=== PATIENT | male | born 1950 | race Asian ===

== ENCOUNTER 2016-12-09 10:40 | Emergency (ER) | payer SELFPAY ==
[~2016-12-09] VITALS: Wt 74.6 kg
[~2016-12-09 10:40] MED LIST: DRON2.5C10 PO
[2016-12-10] MEDS ORDERED: TAMS-14 PO (10:25)
[2016-12-10] MEDS ORDERED: GLYC1SUP92 PR (10:25)
[2016-12-10] MEDS ORDERED: POLY17PO6 PO (10:25)
== END 2016-12-09 11:47 | disposition left against medical advice (07) ==
LOC: FTE 10:40
DX: Z53.21 Procedure and treatment not carried out due to patient leaving prior to being seen by health care provider (principal)

== ENCOUNTER 2016-12-10 08:46 | Emergency (ER) | payer MEDICARE ==
[~2016-12-10] VITALS: Ht 167.6 cm; Wt 77.4 kg
[2016-12-10 08:49] VITALS: Ht 167.6 cm; Wt 77.4 kg
[2016-12-10 10:10] LABS: URINE BLOOD (Dip) POC Trace-intact (NEGATIVE)
[2016-12-10] MEDS ORDERED: TAMS-14 PO (10:25)
[2016-12-10] MEDS ORDERED: POLY17PO6 PO (10:25)
[2016-12-10] MEDS ORDERED: GLYC1SUP92 PR (10:25)
--- NOTE | 2016-12-10 12:12 | ERD ---
DATE OF SERVICE: 12/10/2016 HISTORY OF PRESENT ILLNESS: The patient is a 66-year-old male coming in complaining of urinary rete ntion. The patient states that he dribbles frequently. He feels he needs to urinate, but he is marcia ble to completely void. He denies any back pain. He is able to control bowel movements. Has no nu mbness or tingling down his legs, and denies fever. He says it has been going on for a while. He h as seen his primary doctor, but wanted to be reevaluated. He denies any perineal pain, no abdominal pain, no vomiting and no blood in his urine. He states that he denies dysuria. He also has depres kory, but denies any suicidal or homicidal ideation. Denies any other medical problems. ALLERGIES TO MEDICATIONS: DENIES. PAST SURGICAL HISTORY: Denies. HOSPITALIZATIONS: Denies. REVIEW OF SYSTEMS: A 12-point review of systems was done. Refer to HPI for positives, all other sy stems negative. PHYSICAL EXAMINATION: VITAL SIGNS: Temperature is 98.5, pulse 95, blood pressure is 133/89, respiratory rate 16, O2 satur ation 99% on room air. Pain intensity is 0/10. GENERAL: The patient is well-appearing, well-nourished, no acute distress. HEENT: Atraumatic. Conjunctivae are pink. Pupils equal, round, and reactive to light. There is no s cleral icterus. Tympanic membranes clear bilaterally. Oropharynx clear. No nystagmus or photophobia . CHEST: Clear to auscultation bilaterally. There are no rales, wheezes or rhonchi. HEART: Regular rate and rhythm. No murmurs, clicks, rubs or gallops. No S3 or S4. ABDOMEN: Soft, nontender and nondistended. Good bowel sounds. No rebound or guarding. No gross issac tonitis. No gross organomegaly or masses. No Waggoner sign or McBurney point tenderness. NEURO: Alert and oriented. Cranial nerves 2-12 intact. Motor strength in all 4 extremities with 5/5 strength. Sensation grossly intact. Normal speech and gait. Babinski negative. DTR 2+ throughout. SKIN: There is no apparent rash or petechia. The skin is warm and dry. GENITOURINARY: There is no erythema or swelling noted to the testicles. There is no tenderness to palpation over the perineum. No abnormal findings noted to the penis. EMERGENCY ROOM COURSE: The patient had a urine dip checked in the ER. The patient's urine showed n egative leukocytes, negative nitrites, trace blood, negative ketones, negative glucose, negative pro tein. The patient's urine was sent for culture. DIAGNOSES: 1. Benign prostatic hypertrophy. 2. Constipation. MEDICAL DECISION MAKING: The patient states he has constipation at home. I have low suspicion for bowel obstruction as his last BM was earlier today. I have low suspicion for urinary tract infectio n, nephrolithiasis or septic stone as the patient's urine is within normal limits and patient does n ot have signs of infection noted on the urine. I have low suspicion for prostatitis. The patient's vital signs are stable and there is no erythema or tenderness to palpation over the perineum. The patient likely is experiencing BPH; however, I have low suspicion for a complete occlusion at this t tere as patient is able to give urine in the ER. I have low suspicion for cauda equina as patient is able to control his bowel movements and does not have any numbness or tingling extending down his l egs. DISCHARGE: The patient is discharged stable. The patient is given prescription for Flomax, a nd MiraLax and told to follow up with primary care within 1 to 2 days for reevaluation. The patient was told if symptoms progress or worsen, to return to the ER. All other questions answered at time of discharge. Discharge summary given at the time of departure. The patient understood and compli ed with plan. Dictated By: CHIRAG PUTNAM for DAVID OSMAN/NTS Conf#: [id number] DID#: [id number]
== END 2016-12-10 10:35 | disposition home or self-care (01) ==
LOC: FTE 08:46
DX: N40.0 Benign prostatic hyperplasia without lower urinary tract symptoms (principal); K59.00 Constipation, unspecified
CPT/HCPCS: 81003; 87086; 99283

== ENCOUNTER 2017-05-25 21:04 | Inpatient (IN) | payer MEDICARE, OTHER ==
[~2017-05-25] VITALS: Ht 177.8 cm; Wt 63.8 kg
[~2017-05-25 21:04] MED LIST changes: +GLYC1SUP92 PR; +POLY17PO6 PO; +TAMS-14 PO
[2017-05-25] MEDS ORDERED: SOD CHLORIDE 0.9% 500 ML IV ONE (22:00)
[2017-05-25] MEDS ORDERED: TAMS0.4C2 PO (22:02)
[2017-05-25] MEDS ORDERED: RIS1 PO (22:03)
[2017-05-25] MEDS ORDERED: POTA10TA97 PO (22:04)
[2017-05-25] MEDS ORDERED: OLAN10TA7 PO (22:05)
[2017-05-25] MEDS ORDERED: MULTI PO (22:05)
[2017-05-25] MEDS ORDERED: VENL150C PO (22:06)
[2017-05-25] MEDS ORDERED: DOCU-144 PO (22:07)
[2017-05-25] MEDS ORDERED: CLON-429 PO (22:07)
[2017-05-25] MEDS ORDERED: FENO54TA7 PO (22:09)
[2017-05-25] MEDS ORDERED: HYD25 PO (22:09)
[2017-05-25] MEDS ORDERED: MIRT30TA5 PO (22:10)
[2017-05-25 22:22] LABS: ABNORMAL IP MESSAGE 1; BASOPHILS % 0.2 % (0.0-2.0); HEMATOCRIT 48.4 % (42.0-52.0); HEMOGLOBIN 15.9 g/dl (14.0-18.0); LYMPHOCYTES # 2.2 10^3/ul (0.8-2.9); LYMPHOCYTES % 20.9 % (15.0-51.0); MEAN CORPUSCULAR HEMOGLOBIN 30.7 pg (29.0-33.0); MEAN CORPUSCULAR HGB CONC 32.9 g/dl (32.0-37.0); MEAN CORPUSCULAR VOLUME 93.4 fl (82.0-101.0); MEAN PLATELET VOLUME 10.6 fl (7.4-10.4); MONOCYTE # 1.6 10^3/ul (0.3-0.9); NEUTROPHILS % 63.6 % (39.0-77.0); PLATELET COUNT 214 10^3/UL (140-415); POSITIVE DIFF @See below; RED BLOOD COUNT 5.18 10^6/ul (4.70-6.10); RED CELL DISTRIBUTION WIDTH 13.9 % (11.5-14.5); WHITE BLOOD COUNT 10.5 10^3/ul (4.8-10.8)
--- NOTE | 2017-05-25 22:23 | RADRPT ---
PROCEDURE: CT Brain without contrast. CLINICAL INDICATION: Weakness TECHNIQUE: A CT of the brain was performed on a multidetector CT scanner utilizing axial sections from the skull base through the vertex without contrast. Images were reviewed on a high-resolution [employer] workstation. Exam CTDI = 43.48 mGy and the DLP = 720.23 mGy-cm. One or more of the following dose reduction techniques were used: Automated exposure control Adjustment of the mA and/or kV according to patient size. Use of iterative reconstruction technique. COMPARISON: None available FINDINGS: There is no evidence of intracranial hemorrhage, mass effect or midline shift. There is mild general ized volume loss. No abnormal intra-axial or extra-axial fluid collections are seen. Scattered hypoa ttenuation in the periventricular and deep white matter in keeping with minimal microvascular ischem ic changes. The density of the brain is normal and the de jesus/white matter differentiation is well pre served. The osseous structures are unremarkable. Paranasal sinuses are clear. Vascular calcificati ons are identified. IMPRESSION: 1. No intracranial hemorrhage, mass effect or midline shift. 2. Mild chronic microvascular ischemic changes. 3. Mild intracranial atherosclerosis. RPTAT: HHO .Alexander Noonan MD, MD Date Time Electronically viewed and signed by .Alexander Noonan MD, on 05/25/2017 22:23 .O/
[2017-05-25 22:34] LABS: INR 1.13; PARTIAL THROMBOPLASTIN TIME 23.1 Sec (25.0-35.0); PROTIME 14.5 Sec (12.2-14.2); PT RATIO 1.1
[2017-05-25 22:48] LABS: ALBUMIN 4.7 g/dl (3.3-4.9); ALBUMIN/GLOBULIN RATIO 1.2; BILIRUBIN,INDIRECT 1.5 mg/dl (0-1.1); BILIRUBIN,TOTAL 1.5 mg/dl (0.2-1.3); CALCIUM 9.6 mg/dl (8.4-10.2); CREATININE 1.22 mg/dl (0.61-1.24); POTASSIUM 3.5 mmol/L (3.5-5.1); TOTAL PROTEIN 8.6 g/dl (6.1-8.1)
--- NOTE | 2017-05-25 22:51 | RADRPT ---
PROCEDURE: CHEST - 1 VIEW CLINICAL INDICATION: 67-year-old male with shortness of breath and possible sepsis. TECHNIQUE: A single frontal AP upright portable view of the chest was performed. The images were reviewed on a PACS workstation. COMPARISON: None. FINDINGS: The cardiomediastinal silhouette within normal limits. There is a shallow inspiration. There is mi nimal bibasilar subsegmental atelectasis. There is no evidence for an infiltrate. There is no evid ence for congestive heart failure. There is no evidence for pneumothorax. The osseous structures are intact. IMPRESSION: Shallow inspiration with minimal bibasilar subsegmental atelectasis. .Rashard Rosas MD, Date Time Electronically viewed and signed by .Rashard Rosas MD, MD on 05/25/2017 22:51 .Addi/
[2017-05-25 22:59] LABS: TROPONIN-I 0.036 ng/ml (0.00-0.12)
[2017-05-25 23:03] LABS: ADD UMIC YES; UR ASCORBIC ACID 20 mg/dL (NEGATIVE); UR BILIRUBIN (Dip) NEGATIVE (NEGATIVE); UR BLOOD (Dip) NEGATIVE (NEGATIVE); UR CLARITY SLIGHTLY CLOUDY (CLEAR); UR COLOR AMBER (YELLOW); UR GLUCOSE (Dip) NEGATIVE (NEGATIVE); UR KETONES (Dip) TRACE mg/dL (NEGATIVE); UR LEUKOCYTE ESTERASE (Dip) NEGATIVE Leu/ul (NEGATIVE); UR MUCUS FEW /HPF (NONE SEEN); UR NITRITE (Dip) NEGATIVE (NEGATIVE); UR RBC 1 /HPF (0-5); UR TOTAL PROTEIN (Dip) 2+ mg/dl (NEGATIVE); UR UROBILINOGEN (Dip) 1+ mg/dL (NEGATIVE)
[2017-05-26] VITALS (11 sets, daily range): BP systolic 96–114; BP diastolic 64–79; PULSE 71–87; RESP 15–19; Ht 177.8 cm; Wt 63.8 kg
--- NOTE | 2017-05-26 01:45 | ERA ---
ER Documentation Chief Complaint Date/Time DATE: 05/26/17 TIME: 01:44 Chief Complaint weakness x 1 day HPI 67-year-old male sent from alf facility for weakness 1 day. Weakness is generalized. Patient himself cannot relate any history. History of pre-EMS [employer] prison transfer she ROS All systems reviewed and are negative except as per history of present illness. Medications Home Meds Reported Medications Mirtazapine* (Mirtazapine*) 30 Mg Tablet, 60 MG PO HS, TAB 05/25/17 Hydrochlorothiazide* (Hydrochlorothiazide*) 25 Mg Tab, 25 MG PO QAM, #30 TAB 05/25/17 Fenofibrate, Micronized (Fenofibrate) 54 Mg Tablet, 54 MG PO QAM, TAB 05/25/17 Docusate Sodium* (Colace*) 100 Mg Capsule, 100 MG PO QAM, #30 CAP 05/25/17 Clonazepam* (Klonopin*) 0.5 Mg Tab, 0.5 MG PO Q5PM Y for ANXIETY, TAB 05/25/17 Venlafaxine Hcl* (Effexor XR*) 150 Mg Cap.sr.24h, 150 MG PO QAM, CAP 05/25/17 Multivitamins* (Theragran*) 1 Tab Tab, 1 TAB PO DAILY, TAB 05/25/17 Olanzapine* (Zyprexa*) 10 Mg Tablet, 10 MG PO DAILY, #30 TAB 05/25/17 Potassium Chloride (Klor-Con) 10 Meq Tablet.sa, 10 MEQ PO DAILY, TAB.SA 05/25/17 Risperidone* (Risperdal*) 1 Mg Tablet, 1 MG PO QHS, TAB 05/25/17 Tamsulosin Hcl* (Tamsulosin Hcl*) 0.4 Mg Cap.er.24h, 0.4 MG PO DAILY, CAP 05/25/17 Discontinued Scripts Tamsulosin Hcl* (Flomax*) 0.4 Mg Cap.er.24h, 0.4 MG PO BID, #30 CAP Prov:SEAN CELESTE PA-C 12/10/16 Glycerin* (Glycerin (Adult)*) 1 Each Supp.rect, 1 EACH [place] DAILY Y for CONSTIPATION, #30 SUPP.RECT Prov:SEAN CELESTE PA-C 12/10/16 Polyethylene Glycol* (Miralax*) 17 Gm Powd.pack, 17 GM PO DAILY, #7 Prov:SEAN CELESTE PA-C 12/10/16 Dronabinol* (Marinol*) 2.5 Mg Capsule, 2.5 MG PO TID, #30 CAP Prov:DARÍO IGNACIO DO 08/02/16 Allergies Allergies: Coded Allergies: No Known Allergy (Unverified , 05/25/17) PMhx/Soc History of Surgery: No Anesthesia Reaction: No Hx Neurological Disorder: No Hx Respiratory Disorders: No Hx Cardiac Disorders: No Hx Psychiatric Problems: Yes (Depression.) Hx Miscellaneous Medical Probl: No Hx Alcohol Use: No Hx Substance Use: No Hx Tobacco Use: No Smoking Status: Never smoker Physical Exam Vitals Vital Signs Date Time Temp Pulse Resp B/P Pulse Ox O2 Delivery O2 Flow Rate FiO2 05/26/17 00:37 70 20 109/75 96 Nasal Cannula 2.0 05/25/17 22:04 Nasal Cannula 2 05/25/17 21:17 100.0 90 20 110/81 93 Physical Exam Const: [] Head: Atraumatic Eyes: Normal Conjunctiva ENT: Normal External Ears, Nose and Mouth. Neck: Full range of motion..~ No meningismus. Resp: Clear to auscultation bilaterally Cardio: Regular rate and rhythm, no murmurs Abd: Soft, non tender, non distended. Normal bowel sounds Skin: No petechiae or rashes Back: No midline or flank tenderness Ext: No cyanosis, or edema Neur: Awake and alert Psych: Normal Mood and Affect Result Diagram: 05/25/17215805/25/172158 Results 24 hrs Laboratory Tests Test 05/25/17 21:59 05/25/17 22:24 White Blood Count 10.510^3/ul Red Blood Count 5.1810^6/ul Hemoglobin 15.9g/dl Hematocrit 48.4% Mean Corpuscular Volume 93.4fl Mean Corpuscular Hemoglobin 30.7pg Mean Corpuscular Hemoglobin Concent 32.9g/dl Red Cell Distribution Width 13.9% Platelet Count 94178^3/UL Mean Platelet Volume 10.6fl Neutrophils % 63.6% Lymphocytes % 20.9% Monocytes % 15.0% Eosinophils % 0.0% Basophils % 0.2% Nucleated Red Blood Cells % 0.0/100WBC Neutrophils # (Manual) 6.710^3/ul Lymphocytes # 2.210^3/ul Monocytes # 1.610^3/ul Eosinophils # 0.010^3/ul Basophils # 0.010^3/ul Nucleated Red Blood Cells # 0.010^3/ul Prothrombin Time 14.5Sec Prothrombin Time Ratio 1.1 INR International Normalized Ratio 1.13 Activated Partial Thromboplast Time 23.1Sec Sodium Level 157mmol/L Potassium Level 3.5mmol/L Chloride Level 107mmol/L Carbon Dioxide Level 29mmol/L Anion Gap 25 Blood Urea Nitrogen 39mg/dl Creatinine 1.22mg/dl Glucose Level 116mg/dl Lactic Acid Level 1.8mmol/L Calcium Level 9.6mg/dl Total Bilirubin 1.5mg/dl Direct Bilirubin 0.00mg/dl Indirect Bilirubin 1.5mg/dl Aspartate Amino Transf (AST/SGOT) 58IU/L Alanine Aminotransferase (ALT/SGPT) 35IU/L Alkaline Phosphatase 51IU/L Troponin I 0.036ng/ml Total Protein 8.6g/dl Albumin 4.7g/dl Globulin 3.90g/dl Albumin/Globulin Ratio 1.20 Urine Color CASIE Urine Clarity SLIGHTLY CLOUDY Urine pH 5.0 Urine Specific [place] 1.030 Urine Ketones TRACEmg/dL Urine Nitrite NEGATIVEmg/dL Urine Bilirubin NEGATIVEmg/dL Urine Urobilinogen 1+mg/dL Urine Leukocyte Esterase NEGATIVELeu/ul Urine Microscopic RBC 1/HPF Urine Microscopic WBC 0/HPF Urine Mucus FEW/HPF Urine Hemoglobin NEGATIVEmg/dL Urine Glucose NEGATIVEmg/dL Urine Total Protein 2+mg/dl Current Medications Medications (Trade) Dose Ordered Sig/Jazmyn Route PRN Reason Start Time Stop Time Status Last Admin Dose Admin Sodium Chloride (NS) 500 ml @ 500 mls/hr Q1H ONCE IV 05/25/17 22:00 05/25/17 22:59 DC 05/25/17 22:17 Procedures/MDM EKG: Rate/Rhythm: Normal Sinus Rhythm QRS, ST, T-waves: No changes consistent w/ acute ischemia Impression: No evidence of ischemia or arrhythmia Chest X-ray 1V Interpreted by me: Soft Tissue: No acute abnormalities Bones: No acute abnormalities Mediastinum/Cardiac Silhouette/Lungs: No acute abnormalities Medical decision-makin 7-year-old male generalized weakness. Patient will be made for further evaluation and management. Laboratory data does show evidence of electrolyte imbalance along with mild dehydration. This could be the cause, however further investigation will be necessary at this point. Hospitalist notified. Departure Diagnosis: Primary Impression: Acute weakness Additional Impression: Acute hypernatremia Condition: Serious MIMI FLORES May 26, 2017 01:45
[2017-05-26] MEDS ORDERED: ONDANSETRON 4 MG INJ IV PRN ×2 (04:30)
[2017-05-26] MEDS ORDERED: clonAZEPAM 0.5 MG TAB PO PRN (04:30)
[2017-05-26] MEDS ORDERED: morphine 2 MG INJ IV PRN ×2 (04:30)
[2017-05-26] MEDS: DEXTROSE 5% 1,000 ML IV SCH ×2 (05:03→16:13)
--- NOTE | 2017-05-26 05:09 | HP ---
Date/Time of Note Date/Time of Note DATE: 05/26/17 TIME: 04:57 Assessment/Plan VTE Prophylaxis VTE Prophylaxis Intervention: heparin Lines/Catheters IV [facility] Saline Lock Urinary Cath still in place: Yes Reason Cath still needed: terminal illness/intractable pain Assessment/Plan Assessment/Plan 1. Generalized weakness -Likely secondary to poor p.o. intake and depression -Head CT was negative for acute findings, vitals were stable and lab shows a sodium of 157. -We will correct hypernatremia. Will place a dietary consult. He will have physical therapy evaluation. -Additional workup including additional imaging as needed -He will be placed on aspirin and statin 2. Depression -Per ER nursing report, patient reported feeling depressed, lost his due to cancer 3 months ago and has lost his job as well -We will continue his home psychiatric medications. Telemetry psych evaluation in the morning 3. Hypernatremia -This is likely secondary to dehydration as also indicated by elevated BUN -Will be placed on D5W -Check a.m. labs HPI/ROS Admit Date/Time Admit Date/Time May 26, 2017 at 00:45 Hx of Present Illness This is a 67-year-old male with history of depression, likely psychiatric disorder and BPH who was sent from a facility for generalized weakness, unable to talk and decreased appetite. When he presented to the ER, vitals were stable. Labs show sodium 157, BUN 39 and AST 58 otherwise CBC and CMP were within normal limits. Head CT shows mild chronic micro-angiopathic ischemic changes otherwise no acute findings. Chest x -ray shows minimal subsegmental atelectasis. Currently patient is not willing to answer questions, but per nursing he was noted to be talking to himself. According to ER nursing reports, patient complained of feeling depressed after his 3 months ago due to cancer, and that he has lost his job. Reportedly he was alert and oriented 4 in the ER. . PMH/Family/Social Past Medical History Medical History: other (Depression, BPH) Social History Alcohol Use: other (Unknown) Smoking Status: Unknown if ever smoked Drug Use: other Exam/Review of Systems Vital Signs Vitals Vital Signs Date Time Temp Pulse Resp B/P Pulse Ox O2 Delivery O2 Flow Rate FiO2 05/26/17 03:59 98.4 66 19 102/69 94 05/26/17 01:47 Room Air 05/26/17 00:37 2.0 Exam Constitutional: other (No acute distress) Head: atraumatic, normocephalic Eyes: EOMI, PERRL Respiratory: clear to auscultation, normal air movement Cardiovascular: nl pulses, regular rate and rhythm Gastrointestinal: non-tender, soft Neurological: other (Generalized weakness and both bilateral upper and lower extremities) Labs Result Diagram: 05/25/17215805/25/172158 Medications Medications Current Medications Aspirin (Halfprin) 81 mg DAILY PO ; Start 05/26/17 at 09:00 Ondansetron HCl (Zofran Inj) 4 mg Q6H PRN IV NAUSEA AND/OR VOMITING; Start at 04:30 Morphine Sulfate (morphine) 2 mg Q4H PRN IV pain; Start 05/26/17 at 04:30 Heparin Sodium (Porcine) (Heparin (5000 Units/0.5 ml)) 5,000 unit BID SC ; Start 05/26/17 at 09:00 Clonazepam (Klonopin) 0.5 mg DAILY PRN PO ANXIETY; Start 05/26/17 at 04:30; Status UNV Mirtazapine (Remeron) 60 mg HS PO ; Start 05/26/17 at 21:00; Status UNV Multivitamins Therapeutic (Theragran) 1 tab DAILY PO ; Start 05/26/17 at 09:00; Status UNV Olanzapine (Zyprexa) 10 mg DAILY PO ; Start 05/26/17 at 09:00; Status UNV Risperidone (Risperdal) 1 mg QHS PO ; Start 05/26/17 at 21:00; Status UNV Tamsulosin HCl (Flomax) 0.4 mg DAILY PO ; Start 05/26/17 at 09:00 Venlafaxine HCl (Effexor Xr) 150 mg QAM PO ; Start 05/26/17 at 09:00 Miscellaneous Information 54 mg 54 mg QAM PO ; Start 05/26/17 at 09:00; Status UNV Dextrose (D5W) 1,000 ml @ 100 mls/hr Q10H IV ; Start 05/26/17 at 04:30; Status UNV MIMI BERNABE MD May 26, 2017 05:07
[2017-05-26 07:59] LABS: BASOPHILS % 0.3 % (0.0-2.0); EOSINOPHILS % 0.2 % (0.0-7.0); HEMATOCRIT 46.5 % (42.0-52.0); HEMOGLOBIN 15.3 g/dl (14.0-18.0); LYMPHOCYTES # 2.4 10^3/ul (0.8-2.9); LYMPHOCYTES % 20.2 % (15.0-51.0); MEAN CORPUSCULAR HEMOGLOBIN 31.1 pg (29.0-33.0); MEAN CORPUSCULAR HGB CONC 32.9 g/dl (32.0-37.0); MEAN CORPUSCULAR VOLUME 94.5 fl (82.0-101.0); MEAN PLATELET VOLUME 10.2 fl (7.4-10.4); MONOCYTE # 1.1 10^3/ul (0.3-0.9); MONOCYTES % 9.4 % (0.0-11.0); NEUTROPHILS % 69.6 % (39.0-77.0); PLATELET COUNT 227 10^3/UL (140-415); RED BLOOD COUNT 4.92 10^6/ul (4.70-6.10); WHITE BLOOD COUNT 11.6 10^3/ul (4.8-10.8)
[2017-05-26] MEDS ORDERED: HEPARIN 5,000 UNIT/0.5 ML VIAL SC SCH (09:00)
[2017-05-26 09:04] LABS: ALBUMIN 4.3 g/dl (3.3-4.9); ALBUMIN/GLOBULIN RATIO 1.19; BILIRUBIN,INDIRECT 1.5 mg/dl (0-1.1); BILIRUBIN,TOTAL 1.5 mg/dl (0.2-1.3); CALCIUM 9.2 mg/dl (8.4-10.2); CHOL/HDL RATIO 5.3 RATIO; CREATININE 0.92 mg/dl (0.61-1.24); POTASSIUM 3.1 mmol/L (3.5-5.1); TOTAL PROTEIN 7.9 g/dl (6.1-8.1)
[2017-05-26] MEDS: MULTIVITAMINS THERAPEUTIC TAB PO SCH (09:06)
[2017-05-26] MEDS: TAMSULOSIN (SR) 0.4 MG CAP PO SCH (09:06)
[2017-05-26] MEDS: VENLAFAXINE (XR) 75 MG CAP PO SCH (09:06)
[2017-05-26] MEDS: OLANZAPINE 5 MG TAB PO SCH (09:06)
[2017-05-26] MEDS: ASPIRIN (EC) 81 MG TAB PO SCH (09:06)
[2017-05-26] MEDS: FENOFIBRATE 48 MG TAB PO SCH (09:07)
[2017-05-26] MEDS: HEPARIN 5,000 UNIT/0.5 ML VIAL SC SCH ×2 (09:10→20:51)
--- NOTE | 2017-05-26 10:15 | QN ---
Documentation Comment Examined patient at bedside. Vun-Shvqija-bpespcmu, [place] male who seems comfortable. Awake, oriented 4. Follows commands. Denies any suicidal or hallucination or thoughts. Tolerating diet, however appetite is poor. We will have social media project manager evaluate the patient and will consult telemetry psych if indicated. Patient also with elevated liver function tests. We will proceed with the right upper quadrant ultrasound. We will also order dietitian evaluation. Will replace potassium. Repeat sodium is improved mildly. We will continue D5 water. Case discussed with GAVIN Ridley NP May 26, 2017 10:15
[2017-05-26] MEDS ORDERED: POTASSIUM CHLORIDE (SR) 20 MEQ TAB PO STA (10:20)
--- NOTE | 2017-05-26 16:52 | RADRPT ---
PROCEDURE: US Abdomen Complete. CLINICAL INDICATION: elevated LFT,RN EXT [id number], SEE NOTES TECHNIQUE: Multiple real-time images were acquired of the patient's abdomen and retroperitoneum ut ilizing a high resolution transducer. COMPARISON: None FINDINGS: The liver measures 12.5 cm and demonstrates mildly increased echogenicity with geographic areas of h ypoechogenicity. There is no intrahepatic biliary ductal dilatation. The extrahepatic common bile du ct measures 2 mm. The main portal vein is patent with proper directional flow. The gallbladder is absent. The pancreas is not visualized. The spleen measures 9.5 cm. The right kidney measures 11.1 cm. The left kidney measures 9.9 cm. There are no renal calculi or hy dronephrosis bilaterally. There are multiple simple right renal cysts measuring up to 4.7 cm. There is a 2.9 cm partially exophytic solid - appearing lesion projecting off the mid to lower pole of the right kidney. Foci of vascular flow noted within it. The visualized abdominal aorta and IVC are grossly unremarkable. IMPRESSION: Mild fatty infiltration of the liver with areas of likely focal fatty sparing. Status post cholecystectomy. Normal CBD. 2.9 cm solid lesion in the mid to lower pole of the right kidney with vascular flow. Malignancy can not be excluded. An MRI of the abdomen with attention to the kidneys without and with intravenous c ontrast is recommended for further evaluation. RPTAT: EE Physician Vinay Date Time Electronically viewed and signed by Physician Vinay on 05/26/2017 16:52 /
[2017-05-26] MEDS: RISPERIDONE 1 MG TAB PO SCH (20:44)
[2017-05-26] MEDS: MIRTAZAPINE 15 MG TAB PO SCH (20:44)
[2017-05-27] VITALS (10 sets, daily range): BP systolic 94–100; BP diastolic 51–65; PULSE 68–94; RESP 18–20
[2017-05-27] MEDS: DEXTROSE 5% 1,000 ML IV SCH ×2 (02:12→10:30)
[2017-05-27 07:44] LABS: BASOPHILS % 0.4 % (0.0-2.0); EOSINOPHILS # 0.2 10^3/ul (0.0-0.5); EOSINOPHILS % 2.2 % (0.0-7.0); HEMATOCRIT 41.6 % (42.0-52.0); HEMOGLOBIN 13.9 g/dl (14.0-18.0); LYMPHOCYTES # 2.6 10^3/ul (0.8-2.9); LYMPHOCYTES % 31.3 % (15.0-51.0); MEAN CORPUSCULAR HEMOGLOBIN 31.7 pg (29.0-33.0); MEAN CORPUSCULAR HGB CONC 33.4 g/dl (32.0-37.0); MEAN CORPUSCULAR VOLUME 94.8 fl (82.0-101.0); MEAN PLATELET VOLUME 10.4 fl (7.4-10.4); MONOCYTE # 0.6 10^3/ul (0.3-0.9); MONOCYTES % 7.8 % (0.0-11.0); NEUTROPHILS % 58.1 % (39.0-77.0); PLATELET COUNT 191 10^3/UL (140-415); RED BLOOD COUNT 4.39 10^6/ul (4.70-6.10); RED CELL DISTRIBUTION WIDTH 13.2 % (11.5-14.5); WHITE BLOOD COUNT 8.2 10^3/ul (4.8-10.8)
[2017-05-27 08:16] LABS: ALBUMIN 3.5 g/dl (3.3-4.9); ALBUMIN/GLOBULIN RATIO 1.29; BILIRUBIN,INDIRECT 0.8 mg/dl (0-1.1); BILIRUBIN,TOTAL 0.8 mg/dl (0.2-1.3); CALCIUM 8.6 mg/dl (8.4-10.2); CREATININE 0.78 mg/dl (0.61-1.24); POTASSIUM 3.4 mmol/L (3.5-5.1); TOTAL PROTEIN 6.2 g/dl (6.1-8.1)
[2017-05-27 08:36] LABS: THYROID STIMULATING HORMONE 4.08 MIU/L (0.465-4.680)
[2017-05-27] MEDS: MULTIVITAMINS THERAPEUTIC TAB PO SCH (08:56)
[2017-05-27] MEDS: ASPIRIN (EC) 81 MG TAB PO SCH (08:56)
[2017-05-27] MEDS: FENOFIBRATE 48 MG TAB PO SCH (08:56)
[2017-05-27] MEDS: OLANZAPINE 5 MG TAB PO SCH (08:56)
[2017-05-27] MEDS: VENLAFAXINE (XR) 75 MG CAP PO SCH (08:56)
[2017-05-27] MEDS: TAMSULOSIN (SR) 0.4 MG CAP PO SCH (08:56)
[2017-05-27] MEDS: HEPARIN 5,000 UNIT/0.5 ML VIAL SC SCH ×2 (09:03→21:09)
[2017-05-27] MEDS ORDERED: POTASSIUM CHLORIDE (SR) 20 MEQ TAB PO STA (11:36)
--- NOTE | 2017-05-27 11:42 | PN ---
Date/Time of Note Date/Time of Note DATE: 05/27/17 TIME: 11:35 Assessment/Plan VTE Prophylaxis VTE Prophylaxis Intervention: ambulation, SCD's Lines/Catheters IV Catheter Type (from Nrs): Saline Lock Urinary Cath still in place: Yes Reason Cath still needed: other (indicate) Assessment/Plan Chief Complaint/Hosp Course 1. Dehydration. Resolving. -Encouraged oral intake and continue IV fluid hydration. 2. Hyponatremia secondary to dehydration with a resolving -Change IV fluids to D5 1/2 ns. 3. Depression. Stable. survey worker evaluation appreciated. Continue current psych medication and recommended outpatient psych follow-up. 4. Hypokalemia. Stable -Replete and monitor. 5. 2.9 cm solid lesion in the mid to lower pole of the right kidney with vascular flow. -Obtain renal protocol MRI with and without contrast for further investigation. 6. Mild fatty liver. LFTs stable. Plan: Continue current medical management. DC [place], Encourage diet and AMBULATION. Follow-up with MRI findings and he stable, discharge planning back to [facility] and care. Case discussed with Dr. Rosenthal. Problems: Subjective 24 Hr Interval Summary Free Text/Dictation Patient is more awake and verbally responsive today. He refused chest pain, difficulty breathing, abdominal pain, nausea, vomiting or other discomfort. Has been eating. Exam/Review of Systems Vital Signs Vitals Vital Signs Date Time Temp Pulse Resp B/P Pulse Ox O2 Delivery O2 Flow Rate FiO2 05/27/17 08:13 74 05/27/17 07:48 97.8 20 98/61 100 05/26/17 01:47 Room Air 05/26/17 00:37 2.0 Intake and Output 05/26/17 05/26/17 05/27/17 15:00 23:00 07:00 Intake Total 480 ml 920 ml Output Total 600 ml 300 ml Balance -120 ml 620 ml Exam General: Well developed,adequately built Thai male, not in any acute distress . HEENT: Normocephalic, Atraumatic, No laceration or hematoma; Eyes: PEERL, Conjunctiva clear, Anicteric sclera Neck: Supple without any lymphadenopathy, nontender, no JVD, no carotid bruits, trachea midline, no thyromegaly Cardiac: S1, S2 auscultated, regular rhythm and rate, no mumurs or gallop Pulmonary: Normal respiratory effort. Chest clear to auscultation bilaterally, no adventitious breath sounds GI: Abdomen normal to inspection. Soft, non tender, non- distended, no masses, no rebound tenderness or guarding. Bowel sounds active on all four quadrants Genitourinary: Deferred Extremities: No cyanosis, clubbing, or edema. Pulses [2+] bilaterally. Full ROM on all four extremities. No focal weakness appreciated. Neurologic: Alert to person, place, time, and situation. Affect slightly depressed, intact sensation. Skin: Clean,dry, and intact. No ecchymosis, no rashes, or lesions; no Psych: Slightly depressed affect. No Suicidal or hallucination or thoughts. Results Result Diagram: 05/27/17 0635 05/27/17 0635 Results 24 hrs Laboratory Tests Test 05/27/17 06:35 White Blood Count 8.2 # Red Blood Count 4.39 L Hemoglobin 13.9 L Hematocrit 41.6 L Mean Corpuscular Volume 94.8 Mean Corpuscular Hemoglobin 31.7 Mean Corpuscular Hemoglobin Concent 33.4 Red Cell Distribution Width 13.2 Platelet Count 191 Mean Platelet Volume 10.4 Neutrophils % 58.1 Lymphocytes % 31.3 Monocytes % 7.8 Eosinophils % 2.2 Basophils % 0.4 Nucleated Red Blood Cells % 0.0 Neutrophils # (Manual) 4.8 Lymphocytes # 2.6 Monocytes # 0.6 Eosinophils # 0.2 Basophils # 0.0 Nucleated Red Blood Cells # 0.0 Sodium Level 146 H Potassium Level 3.4 L Chloride Level 100 Carbon Dioxide Level 32 H Anion Gap 17 H Blood Urea Nitrogen 25 #H Creatinine 0.78 Glucose Level 104 Calcium Level 8.6 Magnesium Level 2.3 Total Bilirubin 0.8 Direct Bilirubin 0.00 Indirect Bilirubin 0.8 Aspartate Amino Transf (AST/SGOT) 48 H Alanine Aminotransferase (ALT/SGPT) 39 Alkaline Phosphatase 46 Total Protein 6.2 # Albumin 3.5 Globulin 2.70 Albumin/Globulin Ratio 1.29 Thyroid Stimulating Hormone (TSH) 4.080 Medications Medications Current Medications Aspirin (Halfprin) 81 mg DAILY PO Last administered on 05/27/17t 08:56; Admin Dose 81 MG; Start 05/26/17 at 09:00 Ondansetron HCl (Zofran Inj) 4 mg Q6H PRN IV NAUSEA AND/OR VOMITING; Start at 04:30 Morphine Sulfate (morphine) 2 mg Q4H PRN IV pain; Start 05/26/17 at 04:30 Heparin Sodium (Porcine) (Heparin (5000 Units/0.5 ml)) 5,000 unit BID SC Last administered on 05/27/17 09:03; Admin Dose 5,000 UNIT; Start 05/26/17 at 09:00 Clonazepam (Klonopin) 0.5 mg DAILY PRN PO ANXIETY; Start 05/26/17 at 04:30 Mirtazapine (Remeron) 30 mg HS PO Last administered on 05/26/17 20:44; Admin Dose 30 MG; Start 05/26/17 at 21:00 Multivitamins Therapeutic (Theragran) 1 tab DAILY PO Last administered on 08:56; Admin Dose 1 TAB; Start 05/26/17 at 09:00 Olanzapine (Zyprexa) 10 mg DAILY PO Last administered on 05/27/17 08:56; Admin Dose 10 MG; Start 05/26/17 at 09:00 Risperidone (Risperdal) 1 mg QHS PO Last administered on 05/26/17 20:44; Admin Dose 1 MG; Start 05/26/17 at 21:00 Tamsulosin HCl (Flomax) 0.4 mg DAILY PO Last administered on 05/27/17 08:56; Admin Dose 0.4 MG; Start 05/26/17 at 09:00 Venlafaxine HCl (Effexor Xr) 150 mg QAM PO Last administered on 05/27/17 08:56 ; Admin Dose 150 MG; Start 05/26/17 at 09:00 Fenofibrate 48 mg 48 mg QAM PO Last administered on 05/27/17 08:56; Admin Dose 48 MG; Start 05/26/17 at 09:00 Dextrose/Sodium Chloride (D5-1/2ns) 1,000 ml @ 80 mls/hr [id number] IV ; Start at 11:30; Status GAVIN TAVARES NP May 27, 2017 11:42
[2017-05-27] MEDS: DEXTROSE 5%-0.45% NACL 1,000 ML IV SCH (11:54)
[2017-05-27] MEDS: RISPERIDONE 1 MG TAB PO SCH (21:08)
[2017-05-27] MEDS: MIRTAZAPINE 15 MG TAB PO SCH (21:08)
[2017-05-28] VITALS (9 sets, daily range): BP systolic 91–128; BP diastolic 62–88; PULSE 74–97; RESP 18–19
[2017-05-28] MEDS: DEXTROSE 5%-0.45% NACL 1,000 ML IV SCH ×2 (01:57→12:30)
[2017-05-28 07:56] LABS: CALCIUM 8.3 mg/dl (8.4-10.2); CREATININE 0.71 mg/dl (0.61-1.24); POTASSIUM 3.4 mmol/L (3.5-5.1)
[2017-05-28] MEDS: HEPARIN 5,000 UNIT/0.5 ML VIAL SC SCH (08:58)
--- NOTE | 2017-05-28 12:08 | RADRPT ---
PROCEDURE: MRI Abdomen without and with contrast. CLINICAL INDICATION: Renal mass TECHNIQUE: MRI of the abdomen was performed. Patient was examined both before and following the u ncomplicated intravenous injection of 20 cc of Magnevist IV contrast. Images were reviewed on a high -resolution PACS workstation. COMPARISON: Ultrasound, 05/26/2017 FINDINGS: The liver is normal in size and demonstrates mild steatosis. Scattered benign hepatic cysts are terence ntified. No enhancing hepatic mass is seen. Portal and hepatic veins remain patent. Gallbladder i s surgically absent. Biliary tree, pancreas, spleen and adrenal glands are unremarkable. Bilateral benign renal cysts are identified measuring up to 5.3 cm at the lower pole of the left kidney. No enhancing renal mass is identified. There is no obstructive uropathy. The stomach is partially collapsed, but appears grossly unremarkable. There is no abdominal aortic aneurysm or dissection. No retroperitoneal or juanita hepatis lymphadenopathy is identified. No payal l obstruction, abscess or ascites is identified. The surrounding osseous structures are remarkable for mild degenerative enthesopathy of the spine. No focal osseous lesion is identified. IMPRESSION: 1. Benign renal and hepatic cysts are seen. 2. No evidence of enhancing renal mass or neoplasm is identified. 3. There is mild hepatic steatosis. 4. Gallbladder is surgically absent. RPTAT: EE .Ruslan Moreno MD, MD Date Time Electronically viewed and signed by .Ruslan Moreno MD, MD on 05/28/2017 12:08 .R/
[2017-05-28] MEDS: TAMSULOSIN (SR) 0.4 MG CAP PO SCH (12:45)
[2017-05-28] MEDS: FENOFIBRATE 48 MG TAB PO SCH (12:45)
[2017-05-28] MEDS: ASPIRIN (EC) 81 MG TAB PO SCH (12:45)
[2017-05-28] MEDS: MULTIVITAMINS THERAPEUTIC TAB PO SCH (12:45)
[2017-05-28] MEDS: OLANZAPINE 5 MG TAB PO SCH (12:45)
[2017-05-28] MEDS: VENLAFAXINE (XR) 75 MG CAP PO SCH (12:45)
[2017-05-28] MEDS ORDERED: POTASSIUM CHLORIDE (SR) 20 MEQ TAB PO STA ×2 (13:36→13:49)
--- NOTE | 2017-05-28 13:41 | PDOCDIS ---
Discharge Instructions CONDITION Patient Condition: Stable HOME CARE INSTRUCTIONS: Diet Instructions: RegularYour diet recommendation is: Boost 1 can TID with meals FOLLOW UP/APPOINTMENTS Follow-up Plan 1.Follow up with primary care physician in 1 week If you don't have one please let someone know, we can give you resources that may help you pick one. You may also call your insurance company to assign one to you. Review your medication list with your nurse before leaving and if you need new prescriptions please let your nurse know. I may have made changes to your home medications or given you new prescriptions, please let your primary doctor know as well. Stay compliant with your medications and report any side effects to your PCP or pharmacist. Return to the ER if you have any concerns and cannot reach your doctors or call your insurance company, they usually have a nurse that can help you. 2. Call 911 or go to the nearest emergency room if experiencing loss of consciousness, dizziness, chest pain, shortness of breath, vomiting/abdominal pain, speech difficulties, motor weakness or any unusual symptoms. GAVIN CA NP May 28, 2017 13:41
--- NOTE | 2017-05-28 15:47 | DS ---
Date/Time of Note Date/Time of Note DATE: 05/28/17 TIME: 15:44 Discharge Summary Admission/Discharge Info Admit Date/Time May 26, 2017 at 07:27 Discharge Date/Time Discharge Diagnosis 1. Dehydration. Resolved 2. Hypernatremia secondary to dehydration. Resolved 3. Depression. Stable. 4. Hypokalemia with poor intake. Stable 5. Mild fatty liver. Patient Condition: Stable Procedures 05/28/2017. MRI abdomen. IMPRESSION: 1. Benign renal and hepatic cysts are seen. 2. No evidence of enhancing renal mass or neoplasm is identified. 3. There is mild hepatic steatosis. 4. Gallbladder is surgically absent. Hx of Present Illness Hospital Course This is a 67-year-old [place] male with a history of depression, BPH, who was [id number] for generalized weakness with poor appetite. Apparently, patient was coping with depression after his 3 months ago due to cancer and he lost his job. In the emergency room, patient was completely alert and oriented. His initial labs were within acceptable range except for BUN 39 and AST 58 and elevated sodium 157. Patient was continued on IV fluids. CT was negative for an acute intra- abdominal pathologies. Patient was resumed on diet and home medications. He did not have any suicidal ideation or thoughts. Patient did not have any hallucinations. He was also evaluated by health social work professor and appropriate resources were given. There was no need for inpatient telemetry psych eval. Dehydration resolved with fluids. Hyponatremia also resolved. Patient was started on a diet and he had dietitian evaluation. He was tolerating diet. He was also given boost diet supplements. Patient also tolerated ambulation well. He also had mild hyperkalemia with poor intake which was resolved. There was also concern for a lesion versus cyst in the right kidney which was further investigated with MRI without any acute findings. At this time, there is no further inpatient workup indicated at this patient is feeling back to his baseline and his intake has been significantly improved with no further electrolyte abnormalities. Disposition: Patient will be discharged back to the [facility] where [facility] from. Patient was instructed to follow-up with primary care physician in 1 week. He verbalized discharge instructions. Condition at time of discharge is stable. Approximately 60 minutes was spent in coordinating the discharge on this patient. Case discussed with Dr. Rosenthal [facility] Reported Medications Mirtazapine* (Mirtazapine*) 30 Mg Tablet, 60 MG PO HS, TAB 05/25/17 Hydrochlorothiazide* (Hydrochlorothiazide*) 25 Mg Tab, 25 MG PO QAM, #30 TAB 05/25/17 Fenofibrate, Micronized (Fenofibrate) 54 Mg Tablet, 54 MG PO QAM, TAB 05/25/17 Docusate Sodium* (Colace*) 100 Mg Capsule, 100 MG PO QAM, #30 CAP 05/25/17 Clonazepam* (Klonopin*) 0.5 Mg Tab, 0.5 MG PO Q5PM Y for ANXIETY, TAB 05/25/17 Venlafaxine Hcl* (Effexor XR*) 150 Mg Cap.sr.24h, 150 MG PO QAM, CAP 05/25/17 Multivitamins* (Theragran*) 1 Tab Tab, 1 TAB PO DAILY, TAB 05/25/17 Olanzapine* (Zyprexa*) 10 Mg Tablet, 10 MG PO DAILY, #30 TAB 05/25/17 Potassium Chloride (Klor-Con) 10 Meq Tablet.sa, 10 MEQ PO DAILY, TAB.SA 05/25/17 Risperidone* (Risperdal*) 1 Mg Tablet, 1 MG PO QHS, TAB 05/25/17 Tamsulosin Hcl* (Tamsulosin Hcl*) 0.4 Mg Cap.er.24h, 0.4 MG PO DAILY, CAP 05/25/17 Discontinued Scripts Tamsulosin Hcl* (Flomax*) 0.4 Mg Cap.er.24h, 0.4 MG PO BID, #30 CAP Prov:SEAN CELESTE PA-C 12/10/16 Glycerin* (Glycerin (Adult)*) 1 Each Supp.rect, 1 EACH ID DAILY Y for CONSTIPATION, #30 SUPP.RECT Prov:SEAN CELESTE PA-C 12/10/16 Polyethylene Glycol* (Miralax*) 17 Gm Powd.pack, 17 GM PO DAILY, #7 Prov:SEAN CELESTE PA-C 12/10/16 Dronabinol* (Marinol*) 2.5 Mg Capsule, 2.5 MG PO TID, #30 CAP Prov:DARÍO IGNACIO DO 08/02/16 Follow-up Plan HOME CARE INSTRUCTIONS: Diet Instructions: RegularYour diet recommendation is: Boost 1 can TID with meals FOLLOW UP/APPOINTMENTS Follow-up Plan 1.Follow up with primary care physician in 1 week If you don't have one please let someone know, we can give you resources that may help you pick one. You may also call your insurance company to assign one to you. Review your medication list with your nurse before leaving and if you need new prescriptions please let your nurse know. I may have made changes to your home medications or given you new prescriptions, please let your primary doctor know as well. Stay compliant with your medications and report any side effects to your PCP or pharmacist. Return to the ER if you have any concerns and cannot reach your doctors or call your insurance company, they usually have a nurse that can help you. 2. Call 911 or go to the nearest emergency room if experiencing loss of consciousness, dizziness, chest pain, shortness of breath, vomiting/abdominal pain, speech difficulties, motor weakness or any unusual symptoms. Primary Care Provider Care Physician No Primary Pending Labs Laboratory Tests Test 05/28/17 06:38 Sodium Level 144mmol/L (135-144) Potassium Level 3.4mmol/L (3.5-5.1) Chloride Level 102mmol/L (97-110) Carbon Dioxide Level 30mmol/L (21-31) Anion Gap 15 (8-16) Blood Urea Nitrogen 16mg/dl (7-20) Creatinine 0.71mg/dl (0.61-1.24) Glucose Level 101mg/dl (70-220) Calcium Level 8.3mg/dl (8.4-10.2) GAVIN CA NP May 28, 2017 15:47
== END 2017-05-28 17:15 | disposition home health service (06) | DRG 641 ==
LOC: E/R 21:04 → TEL 05-26 00:45 → OBSVTOIN 05-26 07:27 → TEL 05-27 20:15
PROVIDERS: ADMIT Internal Medicine; ATTEND Internal Medicine
DX: E86.0 Dehydration (principal); E87.0 Hyperosmolality and hypernatremia; K76.0 Fatty (change of) liver, not elsewhere classified; F32.9 Major depressive disorder, single episode, unspecified; N40.0 Benign prostatic hyperplasia without lower urinary tract symptoms; E87.6 Hypokalemia; K76.89 Other specified diseases of liver; N28.1 Cyst of kidney, acquired; Z90.49 Acquired absence of other specified parts of digestive tract
CPT/HCPCS: 36415; 70450; 71010; 74183; 76700; 80048; 80053; 80061; 81001; 83036; 83605; 83735; 84443; 84484; 85025; 85610; 85730; 87040; 87086; 92610; 93005; 97110; 97116; 97530; G0378; J1644; J7040; J7042; J7070

== ENCOUNTER 2018-03-15 11:40 | Emergency (ER) | END 2018-03-15 15:50 | disposition home or self-care (01) ==

== ENCOUNTER 2018-05-02 09:58 | Inpatient (IN) | END 2018-05-05 20:30 | disposition home or self-care (01) | DRG 884 ==